=== PATIENT | male | born 1990 | race Caucasian/White ===

== ENCOUNTER 2017-07-19 16:45 | Emergency (ER) | payer OTHER ==
[~2017-07-19] VITALS: Ht 177.8 cm; Wt 74.0 kg
[2017-07-19 16:48] VITALS: BP 177/81; PULSE 72; RESP 18; TEMP 97.7; O2SAT 100
[2017-07-19] MEDS ORDERED: oxyCODONE/ACETAMINOPHEN 5 MG/325 MG TAB PO ONE (17:15)
[2017-07-19] MEDS ORDERED: CEPHALEXIN MONOHYDRATE 500 MG CAP PO ONE (17:15)
[2017-07-19] MEDS ORDERED: CEPH-460 PO (17:18)
[2017-07-19] MEDS ORDERED: PERC5TAB12 PO (17:18)
--- NOTE | 2017-07-19 17:18 | PD ---
HPI Chief Complaint: Skin Problem Time Seen by Provider: 16:56 Travel History International Travel<30 days: No Contact w/Intl Traveler<30days: No Traveled to known affect area: No History of Present Illness HPI 26-year-old male here for evaluation of a skin related issue to his right posterior knee/leg. About a month ago the patient sustained a significant injury to his right knee/leg which resulted in a large hematoma in this area. He has been followed by orthopedist in [place] where he is from and they advised that he keep the area wrapped with compression. He was wearing a compression stocking, and today he noticed an area that is raised, feels fluctuant, and is purple in coloration. This is new. Patient reports increased pain with this new skin finding. He denies fevers or chills. PFSH Past Medical History Medical other: Yes (POLYCYTHEMIA) Past Surgical History Other Surgery: Yes (SPLEENECTOMY) Social History Alcohol Use: Yes Tobacco Use: Yes Substance Use: Yes (MARIJUANA) Allergies-Medications (Allergen,Severity, Reaction): Coded Allergies: sumatriptan (Verified Allergy, Severe, RESP FAILURE, 07/19/17) Reported Meds & Prescriptions Reported Meds & Active Scripts Active No Active Prescriptions or Reported Medications Review of Systems Except as stated in HPI: all other systems reviewed are Neg Physical Exam Narrative GENERAL: Well-developed, well-nourished, comfortable, no apparent distress. SKIN: Right posterior/proximal leg/knee with moderate edema/hematoma with overlying ecchymosis with a 1 cm x 2 cm raised area of fluctuance with purpleish appearance. There is no surrounding warmth or erythema. CARDIOVASCULAR: Regular rate and rhythm. RESPIRATORY: No accessory muscle use. Clear to auscultation. Breath sounds equal bilaterally. MUSCULOSKELETAL: Skin exam as above. NEUROLOGICAL: Awake and alert. No obvious cranial nerve deficits. Motor grossly within normal limits. Normal speech. PSYCHIATRIC: Appropriate mood and affect; insight and judgment normal. Data Data Last Documented VS Vital Signs Date Time Temp Pulse Resp B/P (MAP) Pulse Ox O2 Delivery O2 Flow Rate FiO2 07/19/17 16:48 97.7 72 18 177/81 (113) 100 Orders Orders Cephalexin (Keflex) (07/19/17 17:15) Oxycodone-Acetamin 5-325 Mg (Percocet (07/19/17 17:15) MDM Medical Decision Making Medical Screen Exam Complete: Yes Emergency Medical Condition: Yes Differential Diagnosis Hematoma, blood blister, abscess, cellulitis Narrative Course Vital signs reviewed. This is a 26-year-old male who sustained a right proximal/posterior leg hematoma about a month ago and was advised to wear compression stocking. He is here on vacation and it appears that his compression stocking has caused a blood blister to his posterior leg. There are no signs of infection such as cellulitis or abscess. Plan at this point is to start the patient on Keflex for electrically. He is requesting pain medication. He states Percocet has worked for him in the past. I will give him a short course of Percocet and advised that he take ibuprofen as well. He was instructed to follow-up with his orthopedist as soon as he returns to [place] and was advised on when to return to the emergency department. He verbalizes understanding and agreement with plan. Diagnosis Primary Impression: Blister of leg without infection Qualified Codes: S80.821A - Blister (nonthermal), right lower leg, initial encounter Referrals: Orthopedist 1 week Additional Instructions: Follow-up with your orthopedist as soon as you return to [place]. Return to the emergency department for worsening symptoms or any other concerns. Scripts Oxycodone-Acetaminophen (Percocet) 5-325 mg Tab 1 TAB PO Q6H Y for PAIN, #10 TAB 0 Refills Prov: Nash Rodriguez MD 07/19/17 Cephalexin (Keflex) 500 Mg Cap 500 MG PO Q12H for Infection for 7 Days, #14 CAP 0 Refills Prov: Nash Rodriguez MD 07/19/17 Disposition: 01 DISCHARGE HOME Condition: Stable Nash Rodriguez MD Jul 19, 2017 17:18
[2017-07-20] MEDS ORDERED: BACT800T5 PO (20:30)
== END 2017-07-19 17:46 | disposition home or self-care (01) ==
LOC: PHED 16:45
DX: S80.821A Blister (nonthermal), right lower leg, initial encounter (principal); X58.XXXA Exposure to other specified factors, initial encounter; Z72.0 Tobacco use
CPT/HCPCS: 99283

== ENCOUNTER 2017-07-20 19:26 | Emergency (ER) | payer OTHER ==
[~2017-07-20] VITALS: Ht 177.8 cm; Wt 72.4 kg
[~2017-07-20 19:26] MED LIST: CEPH-460 PO; PERC5TAB12 PO
[2017-07-20 20:00] VITALS: BP 159/81; PULSE 70; RESP 16; TEMP 98.2; O2SAT 98
[2017-07-20] MEDS ORDERED: BACT800T5 PO (20:30)
--- NOTE | 2017-07-20 20:31 | PD ---
HPI Chief Complaint: Wound/Suture/Staple Re-Check Time Seen by Provider: 20:23 Travel History International Travel<30 days: No Contact w/Intl Traveler<30days: No Traveled to known affect area: No History of Present Illness HPI The patient is a 26-year-old male who has a history of polycythemia vera who developed a hematoma on his right knee. He was followed by an orthopedist in [place] for this and has an appointment with the orthopedist on the of this month. The orthopedist recommended compression. Since then the patient was seen and given Keflex here in the emergency department for what was felt to be a noninfected hematoma. The patient comes in because a hematoma has been draining bloody fluid. He denies any fever and the pain is minimal. He is able to walk and flex his knee without pain. PFSH Past Surgical History Other Surgery: Yes (SPLEENECTOMY) Social History Alcohol Use: Yes Tobacco Use: Yes Substance Use: Yes (MARIJUANA) Allergies-Medications (Allergen,Severity, Reaction): Coded Allergies: sumatriptan (Verified Allergy, Severe, RESP FAILURE, 07/20/17) Reported Meds & Prescriptions Reported Meds & Active Scripts Active Percocet (Oxycodone-Acetaminophen) 5-325 mg Tab 1 Tab PO Q6H PRN Keflex (Cephalexin) 500 Mg Cap 500 Mg PO Q12H 7 Days Review of Systems Except as stated in HPI: all other systems reviewed are Neg Physical Exam Narrative GENERAL: Well-nourished, well-developed patient in minimal apparent distress with bloody drainage behind his right knee. His vital signs show blood pressure 159/81 but are otherwise normal. SKIN: Focused skin assessment warm/dry. HEAD: Normocephalic. EYES: No scleral icterus. No injection or drainage. NECK: Supple, trachea midline. No JVD or lymphadenopathy. CARDIOVASCULAR: Regular rate and rhythm without murmurs, gallops, or rubs. RESPIRATORY: Breath sounds equal bilaterally. No accessory muscle use. GASTROINTESTINAL: Abdomen soft, non-tender, nondistended. MUSCULOSKELETAL: No cyanosis, or edema. There is bloody drainage behind the right knee. No evidence of cellulitis is present. There is minimal tenderness in this area. Collaterals, drawer, Mary Lou all intact testing. The patient has full range of motion of the right knee with minimal discomfort. BACK: Nontender without obvious deformity. No CVA tenderness. Data Data Last Documented VS Vital Signs Date Time Temp Pulse Resp B/P (MAP) Pulse Ox O2 Delivery O2 Flow Rate FiO2 07/20/17 20:00 98.2 70 16 159/81 (107) 98 MDM Medical Decision Making Medical Screen Exam Complete: Yes Emergency Medical Condition: Yes Medical Record Reviewed: Yes Interpretation(s) Draining hematoma, venous rupture, coagulopathy, infected hematoma Differential Diagnosis The patient appears to have a draining hematoma. There is no evidence of infection at this time. Nevertheless, the patient will have added to his regimen Septra DS in hopes of preventing an infection with his draining hematoma. Plan: He will need to follow-up with his orthopedist in [place] as scheduled. Narrative Course The patient appears to have a draining hematoma. There is no evidence at this time of infection but he is a set up for a significant infection. Septra DS will be added to his regimen. He needs to follow-up with his orthopedist as scheduled on the of this month. A compressive/absorbent bandage will be applied. Additional Instructions: The antibiotic is 1 tablet twice daily for 10 days. Follow-up with your orthopedist as scheduled in [place]. Med/Other Pt SpecificInfo: Prescription(s) given Scripts Sulfamethoxazole-Trimethoprim (Bactrim DS) 800-160 Mg Tab 1 TAB PO BID for Infection, #20 TAB 0 Refills Prov: Max Gay MD 07/20/17 Disposition: 01 DISCHARGE HOME Condition: Stable Max Gay MD Jul 20, 2017 20:31
[2017-07-20] MEDS ORDERED: SULFAMETHOXAZOLE-TRIMETHOPRIM DS 800-160 MG TAB PO ONE (20:45)
[2017-07-20 20:46] VITALS: BP 159/81
== END 2017-07-20 21:05 | disposition home or self-care (01) ==
LOC: PHED 19:26
DX: S81.001A Unspecified open wound, right knee, initial encounter (principal); Z72.0 Tobacco use
CPT/HCPCS: 99283